=== PATIENT | female | born 1980 | race Caucasian/White ===

== ENCOUNTER 2016-11-28 20:37 | Emergency (ER) | payer MEDICAID, OTHER ==
[~2016-11-28] VITALS: Ht 160 cm; Wt 62.0 kg
[2016-11-28 21:32] VITALS: Ht 160 cm; Wt 62.0 kg
[2016-11-28 22:44] LABS: URINE BLOOD (Dip) POC 1+ (NEGATIVE)
[2016-11-28] MEDS ORDERED: ACETAMINOPHEN 500 MG TAB PO STA (23:18)
[2016-11-28] MEDS ORDERED: LANS30CA47 PO (23:20)
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
--- NOTE | 2016-11-28 23:56 | RADRPT ---
PROCEDURE: CT head, without contrast. CLINICAL INDICATION: Head injury. Loss of consciousness. TECHNIQUE: Noncontrast CT examination of the head, with axial, sagittal and coronal reformatted im ages. Automated dose exposure control was employed. CTDI: 44.68 mGy and DLP: 720.23 mGy-cm. COMPARISON: None. FINDINGS: Note acute hemorrhage. Subarachnoid spaces are substantially preserved and symmetric. Ventricles are unremarkable. No mass effect. Bonilla-white matter distinction is preserved without evident decreased attenuation t o suggest acute or recent infarct. Sinuses and osseous structures are unremarkable. IMPRESSION: No acute process in the head. RPTAT: [facility] Physician Cristal Date Time Electronically viewed and signed by Physician Cristal on 11/28/2016 23:56 RS/
[2016-11-29] MEDS ORDERED: HYDR-906 PO (00:02)
[2016-11-29] MEDS ORDERED: ACET500C5 PO (00:02)
[2016-11-29] MEDS ORDERED: CYCL-319 PO (00:02)
[2016-11-29 00:12] VITALS: TEMP 98.3
== END 2016-11-29 00:12 | disposition home or self-care (01) ==
LOC: FTE 20:37
DX: S06.0X9A Concussion with loss of consciousness of unspecified duration, initial encounter (principal); S16.1XXA Strain of muscle, fascia and tendon at neck level, initial encounter; S39.012A Strain of muscle, fascia and tendon of lower back, initial encounter; F17.210 Nicotine dependence, cigarettes, uncomplicated; V49.50XA Passenger injured in collision with unspecified motor vehicles in traffic accident, initial encounter
CPT/HCPCS: 70450; 81003